=== PATIENT | female | born 1955 | race Caucasian/White ===

== ENCOUNTER 2018-12-13 06:30 | Day surgery (SDC) | payer MEDICARE, BC ==
[~2018-12-13 06:30] MED LIST: Lactated Ringers 1,000 ML IV SCH
[2018-12-13] MEDS ORDERED: Lactated Ringers 1,000 ML IV SCH (07:00)
[2018-12-13] MEDS ORDERED: ceFAZolin 2 GM in Premix Bag 1 BAG IV ONE (07:00)
--- NOTE | 2018-12-13 07:28 | PCM.PREANE ---
Preanesthetic Assessment - Anesthesia/Transfusion/Family Hx Anesthesia History: Prior Anesthesia Reaction (urinary retention after hernia surgery) Family History of Anesthesia Reaction: No Transfusion History: Prior Transfusion Without Reaction - Review of Systems General: No Symptoms Pulmonary: No Symptoms Cardiovascular: No Symptoms Gastrointestinal: No Symptoms Neurological: No Symptoms Other: Reports: None - Physical Assessment NPO Status Date: 12/12/18 O2 Sat by Pulse Oximetry: 96 Respiratory Rate: 18 Vital Signs: Last Vital Signs Temp 95.9 F 12/13/18 07:10 Pulse 61 12/13/18 07:10 Resp 18 12/13/18 07:10 BP 139/96 H 12/13/18 07:10 Pulse Ox 96 12/13/18 07:10 Height: 5 ft 2 in Weight: 91.172 kg ASA Class: 2 Mental Status: Alert & Oriented x3 Airway Class: Mallampati = 2 Dentition: Reports: Normal Dentition ROM/Head Extension: Full Lungs: Clear to Auscultation, Normal Respiratory Effort Cardiovascular: Regular Rate, Regular Rhythm - Allergies Allergies/Adverse Reactions: Allergies Allergy/AdvReac Type Severity Reaction Status Date / Time enalapril Allergy Cough Verified 12/10/18 13:40 Sulfa (Sulfonamide Allergy Rash Verified 12/10/18 13:40 Antibiotics) sulfamethoxazole Allergy Rash Verified 12/10/18 13:40 [From Marra] trimethoprim [From ] Allergy Rash Verified 12/10/18 13:40 - Blood Blood Available: No - Anesthesia Plan Pre-Op Medication Ordered: None - Acknowledgements Anesthesia Type Planned: General Anesthesia Pt an Appropriate Candidate for the Planned Anesthesia: Yes Alternatives and Risks of Anesthesia Discussed w Pt/Guardian: Yes Pt/Guardian Understands and Agrees with Anesthesia Plan: Yes Additional Comments: anes prob list: htn, thyroid replacement, takes clonazwwpam daily at night for restless leg syndrome PLAN: ga/lma PreAnesthesia Questionnaire HEENT History: Reports: Other (See Below) Other HEENT History: wears glasses Cardiovascular History: Reports: High Cholesterol, Hypertension Gastrointestinal History: Reports: Hiatal Hernia [employer] History: Reports: Musculoskeletal History: Reports: Arthritis, Back Pain, Chronic Neurological History: Reports: Concussion, Other (See Below) Other Neuro History: restless leg syndrome, degenerative disc disease-lower back Endocrine/Metabolic History: Reports: Hypothyroidism, Obesity/BMI 30+ Hematologic History: Reports: Blood Transfusion(s) - Past Surgical History HEENT Surgical History: Reports: Adenoidectomy, Tonsillectomy GI Surgical History: Reports: Cholecystectomy, Colonoscopy, Other (See Below) Other GI Surgeries/Procedures: Ventral Hernia Repair Female Surgical History: Reports: Section, Hysterectomy, Salpingo- Oophorectomy, Other (See Below) Other Female Surgeries/Procedures: Bladder Suspension - SUBSTANCE USE Smoking Status *Q: Never Smoker Recreational Drug Use History: No - HOME MEDS Home Medications: Home Meds Calcium Carbonate/Vitamin D3 [Calcium 600 + Vit D 400 Softgl] 2 tab PO QAM 12/10 [History] Fish Oil/[place]-3 Fatty Acids [Fish Oil 1,000 MG] 1,000 mg PO DAILY 12/10/18 [ History] Levothyroxine [Synthroid] 100 mcg PO DAILY 12/10/18 [History] Losartan [Cozaar] 50 mg PO QAM 12/10/18 [History] Meloxicam 7.5 mg PO QPM 12/10/18 [History] Multivitamin [Daily Multiple Vitamin] 1 tab PO DAILY 12/10/18 [History] Psyllium Husk (With Sugar) [Metamucil Powder] 1 tbsp PO DAILY PRN 12/10/18 [ History] Simvastatin 20 mg PO BEDTIME 12/10/18 [History] clonazePAM [Klonopin] 1 mg PO BEDTIME 12/10/18 [History] - CURRENT (IN HOUSE) MEDS Current Meds: Current Medications Cefazolin Sodium/Dextrose 2 gm (/ Premix) 50 mls @ 100 mls/hr IV ONETIME ONE Stop: 12/13/18 07:29 Lactated Ringer's (Ringers, Lactated) 1,000 mls @ 125 mls/hr IV ASDIRECTED [facility] Last Admin: 12/13/18 07:15 Dose: 125 mls/hr Discontinued Medications Lactated Ringer's (Ringers, Lactated) 1,000 mls @ 125 mls/hr IV ASDIRECTED [facility]
[2018-12-13] MEDS ORDERED: Bupivacaine 0.5% 10 ML SDV ONE (07:31)
[2018-12-13] MEDS ORDERED: Rocuronium 100 MG/10 ML Syringe ONE (07:44)
[2018-12-13] MEDS ORDERED: Ondansetron 4 MG/2 ML SDV ONE (07:44)
[2018-12-13] MEDS ORDERED: fentaNYL 250 MCG/5 ML SDV ONE (07:45)
[2018-12-13] MEDS ORDERED: Propofol 200 MG/20 ML SDV ONE (07:45)
[2018-12-13] MEDS ORDERED: Midazolam 1 MG/ML 2 ML SDV ONE (07:47)
[2018-12-13] MEDS ORDERED: ceFAZolin/Dextrose,Iso-Osmotic 2 GM/50 ML Duplex Bag IV ONE (07:58)
[2018-12-13] MEDS ORDERED: ePHEDrine 50 MG/ML SDV ONE (08:15)
[2018-12-13] MEDS ORDERED: fentaNYL 100 MCG/2 ML SDV IVPUSH PRN (08:46)
--- NOTE | 2018-12-13 10:13 | PN ---
SURGEON: Chemo Calderon DPM. PREOPERATIVE DIAGNOSIS: hypertrophic bone and exostosis to the left great toe and contracture of the left great toe. PLANNED PROCEDURES: 1. Ostectomy, left great toe. 2. Percutaneous flexor tenotomy, left great toe. 3. Extensor tendon lengthening, left great toe. The patient and I have discussed these procedures in detail, and any combination of the procedures may be performed as necessary. However, the patient understands that all procedures will not necessarily be performed. ALLERGIES: The patient is allergic to enalapril and to sulfa. PAST MEDICAL HISTORY: Significant, 1. Hypertensive cardiovascular disease. 2. Hypothyroidism. 3. Dyslipidemia. 4. Restless legs syndrome. 5. Degenerative disk disease. 6. Bilateral hammertoes. 7. Pes planus, bilateral. 8. Plantar fasciitis, bilateral. 9. Decreased visual acuity. 10.Menopause. 11.Remote history of anxiety. 12.Overweight. PAST SURGICAL HISTORY: 1. Tonsils and adenoids. 2. x4. 3. Colonoscopy. 4. Laparoscopic cholecystectomy. 5. Laparoscopic ventral hernia repair. 6. Bladder suspension surgery. 7. Total abdominal hysterectomy with BSPO. CURRENT MEDICATIONS: Simvastatin 20 mg daily, losartan 50 mg daily, levothyroxine 100 mcg daily, clonazepam 1 mg at bedtime, calcium and vitamin D 1200/800 daily, meloxicam 7.5 mg in the evening, Metamucil as necessary, omega-3 fatty acids 1000 mg daily, and multivitamin daily. LABORATORY DATA: All of her labs within normal limits. White blood cell 5.5, hemoglobin 13.1, hematocrit 38.8, platelet 190. BUN 17, creatinine 0.77, sodium 139, potassium 4.7, calcium 9.7. EKG showed normal sinus rhythm and there was no acute cardiopulmonary process noted on x-ray. The patient was cleared for surgery by Venkata Cummins M.D. All the patient's questions have been answered. No guarantees have been expressed or implied. The risks and benefits have been thoroughly discussed with the patient including the risk of infection postoperatively, risk of prolonged healing as well. The patient consents for surgery today, December 13, 2018. NEERAJ / MOI /[id number] [place]
--- NOTE | 2018-12-13 10:21 | PCM.OPNOTE ---
- General Post-Op/Procedure Note Date of Surgery/Procedure: 12/13/18 Operative Procedure(s): 1. ostectomy great toe left foot. 2. percutaneous tenotomy great toe left foot. 3. extensor tendon lengthening great toe left foot Findings: consistent with diagnoses Pre Op Diagnosis: hypertrophic bone and exostosis left great toe. contracture of left great toe Post-Op Diagnosis: hypertrophic bone and exostosis left great toe. contracture of left great toe Anesthesia Technique: General ET Tube Primary Surgeon: Chemo Calderon Pathology: bone from proximal phalanx of hallux of left foot EBL in mLs: 5 Complications: none Condition: Good Free Text/Narrative:: materials: 4-0 vicryl 4-0 prolene injectables: 5 ml 0.5% marcaine plain
--- NOTE | 2018-12-13 10:43 | PN ---
IDENTIFICATION: The patient is a 63-year-old female. PREOPERATIVE DIAGNOSES: Include spur on the left great toe and painful contracture of the left great toe. PLANNED PROCEDURES: 1. Ostectomy, left great toe. 2. Percutaneous flexor tenotomy, left great toe. 3. Extensor tendon lengthening, left great toe. The patient understands that not all procedures will necessarily be performed and this decision will be an intraoperative decision. ALLERGIES: The patient is allergic to enalapril. The patient is also allergic to sulfa medications. PAST MEDICAL HISTORY: Significant for: 1. Hypertensive cardiovascular disease. 2. Hypothyroidism. 3. Dyslipidemia. 4. Restless legs syndrome. 5. Degenerative disk disease. 6. Bilateral hammertoes. 7. Pes planus, bilateral. 8. Plantar fasciitis, bilateral. 9. Decreased visual acuity. 10.Menopause. 11.Remote history of anxiety. 12.Overweight. PAST SURGICAL HISTORY: 1. Tonsils and adenoids. 2. x4. 3. Colonoscopy. 4. Laparoscopic cholecystectomy. 5. Laparoscopic ventral hernia repair. 6. Bladder suspension surgery. 7. Total abdominal hysterectomy with BSPO. MEDICATIONS: 1. Simvastatin 20 mg daily. 2. Losartan 50 mg daily. 3. Levothyroxine 100 mcg daily. 4. Clonazepam 1 mg at bedtime. 5. Calcium and vitamin D 1200/800 daily. 6. Meloxicam 7.5 mg in the evening. 7. Metamucil p.r.n. 8. [place]-3 fatty acids 1000 mg daily. 9. Multivitamins daily. LABORATORY DATA: All lab values were normal with white cells at 5.5, red blood cells 4.39, hemoglobin 13.1, hematocrit 38.8, and platelets 190. BUN 17, creatinine 0.77, sodium 139, potassium 4.7, calcium 9.7. There was no acute cardiopulmonary process on chest x-ray, and EKG was normal sinus rhythm. All the patient's questions have been answered. No guarantees expressed or implied. Risks and benefits including postoperative infection and prolonged healing have been discussed with the patient. The patient consents for surgery today as discussed. NEERAJ PRATER /[id number]
--- NOTE | 2018-12-13 12:42 | PCM.POSTAN ---
POST ANESTHESIA ASSESSMENT - MENTAL STATUS Mental Status: Alert, Oriented - RESPIRATORY Respiratory Status: Respiratory Rate WNL, Airway Patent, O2 Saturation Stable - CARDIOVASCULAR CV Status: Pulse Rate WNL, Blood Pressure Stable - GASTROINTESTINAL GI Status: No Symptoms - POST OP HYDRATION Hydration Status: Adequate & Stable
--- NOTE | 2018-12-13 13:32 | PCM48HPAN ---
Post Anesthesia Note - EVALUATION WITHIN 48HRS OF ANESTHETIC Vital Signs in Normal Range: Yes Patient Participated in Evaluation: Yes Respiratory Function Stable: Yes Airway Patent: Yes Cardiovascular Function Stable: Yes Hydration Status Stable: Yes Pain Control Satisfactory: Yes Nausea and Vomiting Control Satisfactory: Yes Mental Status Recovered: Yes Resp Rate: 16
--- NOTE | 2018-12-13 17:22 | OR ---
SURGEON: Chemo Calderon DPM DATE OF PROCEDURE: 12/13/2018 PREOPERATIVE DIAGNOSES: Hypertrophic bone and exostosis of the left great toe and contracture of the left great toe. POSTOPERATIVE DIAGNOSES: Hypertrophic bone and exostosis of the left great toe and contracture of the left great toe. OPERATIVE PROCEDURES: 1. Ostectomy, great toe, left foot. 2. Percutaneous flexor tenotomy, great toe, left foot. 3. Extensor tendon lengthening, great toe, left foot. FINDINGS: Consistent with diagnoses. ANESTHESIA: General. PATHOLOGY: Bone from proximal phalanx of hallux of left foot. ESTIMATED BLOOD LOSS: 5 mL. COMPLICATIONS: None. CONDITION: The patient tolerated the anesthesia and the procedure well with no complications noted and following brief stay in recovery, she was planned for discharge later today. HEMOSTASIS: Above-ankle pneumatic tourniquet inflated to a pressure of 250 mmHg after an Esmarch bandage exsanguination. MATERIALS: 4-0 Vicryl and 4-0 Prolene. INJECTABLES: 5 mL of 0.5% Marcaine plain injected at the conclusion of the procedure. TOURNIQUET TIME: 71 minutes. JUSTIFICATION FOR PROCEDURES: The patient has had long-standing pain in her left great toe due to a contracture involving both the flexor and extensor tendons as well as hypertrophic bone exostoses in and around the interphalangeal joint of the left great toe. The patient has been unable to achieve lasting satisfactory relief with conservative measures such as nonweightbearing and restriction of movement and desires surgical correction. All the patient's questions have been asked and answered. No guarantees were expressed or implied. The patient understands that only necessary procedures will be done. As it turns, all 3 planned procedures were done, and the patient tolerated the procedures well. PROCEDURES IN DETAIL: Procedure #1: Ostectomy of the great toe, left foot. After preoperative x-rays were taken, Esmarch bandage exsanguination was performed following the marking of the incision site over the great toe just medial to the extensor hallucis longus tendon. The Esmarch bandage exsanguination was performed and the tourniquet was inflated. Incision was made with a #15 blade noted on #3 handle and deepened through superficial and deep dermal layers to the subcutaneous layer of tissue. All small bleeders were bovied as needed. The extensor tendon was visualized and retracted out of the way. Incision was deepened to bone and all tissue was retracted out of the way revealing an enlarged area of hypertrophic bone as well as a small exostosis in the interphalangeal joint area. The distal medial aspect of the proximal phalanx of the hallux had the hypertrophic bone and the proximal aspect of the distal phalanx of the hallux that exhibited the exostosis. Both of these were treated by use of small bone rongeur and manual rasping smooth of the areas and judged to be as desired and attention was then directed to procedure #2. Procedure #2: Percutaneous flexor tenotomy, left great toe. Using an 18-gauge needle, stab incision was made over the middle aspect of the plantar proximal phalanx of the hallux through the skin and straight to bone encountering the flexor tendon and going by the resistance provided by feel of the flexor tendon. The sharp point of the 18-gauge needle was used to perform a flexor tenotomy largely releasing the contracture portion that was caused by the flexor tendon. Attention was then directed to procedure #3. Procedure #3: Extensor tendon lengthening of great toe, left foot. Using the existing incision, a Z-plasty was performed about the extensor hallucis longus tendon, which was lengthened slightly so as not to overcompensate for the release provided by the prior procedure and the tendon was sutured under physiologic tension with 4-0 Vicryl suture that was the method of reapproximation of the tendon. The area was flushed with normal sterile saline and reexamined and closure proceeded with the subcutaneous and deep layers closed with 4-0 Vicryl suture and the superficial skin with 4-0 Prolene suture. Tourniquet was deflated at a time of 71 minutes. Prompt hyperemic response was noted to all digits of the left foot and dressings were placed after the administration of 5 mL of 0.5% Marcaine plain about the left great toe. Dressings consisted of Betadine-soaked Xeroform gauze, fluff gauze, and Kerlix roll, secured with an Robert bandage. The patient tolerated the procedure and anesthesia well. No complications were noted and the patient transferred to recovery with plan for discharge soon after. Written and verbal instructions regarding care will be provided to the patient, and the patient will be following up this weekend 2 days from now in my office for the first dressing change. NEERAJ PRATER /[id number]
== END 2018-12-13 14:50 | disposition home or self-care (01) ==
LOC: MW.SDS 06:30
PROVIDERS: ATTEND Podiatrist Foot & Ankle Surgery
DX: M89.8X7 Other specified disorders of bone, ankle and foot (principal); M20.5X2 Other deformities of toe(s) (acquired), left foot; I10 Essential (primary) hypertension; E78.00 Pure hypercholesterolemia, unspecified; E03.9 Hypothyroidism, unspecified; G25.81 Restless legs syndrome; Z88.2 Allergy status to sulfonamides; Z88.8 Allergy status to other drugs, medicaments and biological substances; Z79.1 Long term (current) use of non-steroidal anti-inflammatories (NSAID); Z79.899 Other long term (current) drug therapy
CPT/HCPCS: 28124; 28240; 88304; 88311; J2001; J2250; J2405; J2704; J3010; J3490; J7120; 01480